=== PATIENT | female | born 1940 | race Caucasian/White ===

== ENCOUNTER 2023-03-15 22:21 | Inpatient (IN) | payer OTHER, MEDICAID ==
[~2023-03-15] VITALS: Ht 157.5 cm; Wt 77.1 kg
[2023-03-15 22:31] VITALS: BP 142/66; PULSE 110; RESP 26; TEMP 98.3; O2SAT 98
[2023-03-15] MEDS ORDERED: NACL 0.9% 1,000 ML IV ONE (22:35)
[2023-03-15] MEDS ORDERED: cefTRIAXone 1,000 MG VIAL ONE (23:08)
[2023-03-15 23:22] LABS: BASOPHILS % (AUTO) 0.3 % (0.0-2.0); EOSINOPHILS % (AUTO) 0.2 % (0.0-4.0); HEMATOCRIT 38.7 % (36-48); HEMOGLOBIN 12.8 g/dL (12.0-16.0); LYMPHOCYTES % (AUTO) 20.1 % (20.5-51.1); MEAN CORPUSCULAR HEMOGLOBIN 31 pg (27-31); MEAN CORPUSCULAR HGB CONC 33 g/dL (33-37); MEAN CORPUSCULAR VOLUME 93.3 fL (80-94); MONOCYTES # (AUTO) 1.3 K/uL (0.8-1.0); MONOCYTES % (AUTO) 8.5 % (1.7-9.3); NEUTROPHILS # (AUTO) 10.6 K/uL (1.8-7.7); NEUTROPHILS % (AUTO) 70.9 % (42.2-75.2); PLATELET COUNT (AUTO) 206 K/uL (140-450); RED BLOOD CELL COUNT(AUTO) 4.15 MIL/uL (4.20-5.40); RED CELL DISTRIBUTION WIDTH 13.8 % (11.6-13.7); WHITE BLOOD COUNT (AUTO) 14.9 K/uL (4.8-10.8)
[2023-03-15 23:38] LABS: LACTIC ACID 0.8 mmol/L (0.4-2.0)
[2023-03-15 23:47] LABS: ALANINE AMINOTRANSFERASE 31 U/L (12-78); ALKALINE PHOSPHATASE 71 U/L (50-136); ANION GAP 11.2 (8-16); ASPARTATE AMINOTRANSFERASE 27 U/L (15-37); CALCIUM 9.6 mg/dL (8.5-10.1); CARBON DIOXIDE 23.6 mmol/L (21-32); CHLORIDE 111 mmol/L (98-107); CREATININE 0.7 mg/dL (0.6-1.3); GLUCOSE 103 mg/dL (74-106); POTASSIUM 4.8 mmol/L (3.5-5.1); SODIUM SERUM 141 mmol/L (136-145); TOTAL BILIRUBIN 0.9 mg/dL (0.0-1.0); TOTAL PROTEIN, SERUM 6.4 g/dL (6.4-8.2); UREA NITROGEN, BLOOD 15 mg/dL (7-18)
[2023-03-15 23:53] LABS: APPEARANCE,URINE CLOUDY (CLEAR); BILIRUBIN,URINE NEGATIVE (NEGATIVE); BLOOD, URINE 1+ (NEGATIVE); COLOR,URINE YELLOW (YELLOW); LEUKOCYTE ESTERASE ,URINE 3+ (NEGATIVE); NITRITE, URINE POSITIVE (NEGATIVE); PROTEIN,URINE 1+ (NEGATIVE); UGLUCOSE NEGATIVE (NEGATIVE)
[2023-03-16] VITALS (7 sets, daily range): BP systolic 138–168; BP diastolic 62–75; PULSE 75–124; RESP 18; TEMP 96.2–97.8; O2SAT 94–100
[2023-03-16] LABS: BACTERIA,URINE 3+ /HPF (None Seen); RBC,URINE NONE SEEN /HPF (0-5); SQUAMOUS EPITHELIAL CELL,UR 0-3 (FEW) /LPF (0-3 (FEW)); WBC,URINE TOO MANY TO COUNT /HPF (0-5)
[2023-03-16] MEDS ORDERED: MORPHINE SULFATE 2 MG/ML SYR IVP PRN (07:55)
[2023-03-16] MEDS ORDERED: POTASSIUM CHLORIDE 10 MEQ TABER PO PRN (07:55)
[2023-03-16] MEDS ORDERED: MAG SULF 2000 MG/WATER PREMIX 50 ML IV PRN (07:55)
[2023-03-16] MEDS ORDERED: NACL 0.9% 1,000 ML IV SCH (07:55)
[2023-03-16] MEDS ORDERED: ACETAMINOPHEN 325 MG TAB PO PRN (07:55)
[2023-03-16] MEDS ORDERED: LORazepam 2 MG/ML VIAL IVP PRN (07:55)
[2023-03-16] MEDS ORDERED: DOCUSATE SODIUM 100 MG GELCAP PO PRN (07:55)
[2023-03-16] MEDS ORDERED: ONDANSETRON 4 MG/2 ML VIAL IVP PRN (07:55)
[2023-03-16] MEDS ORDERED: LEVOFLOXACIN 500 MG/D5W PREMIX 100 ML IV SCH (08:30)
[2023-03-16] MEDS ORDERED: ATOR20TA PO (21:52)
[2023-03-16] MEDS ORDERED: LETR2.5T PO (21:52)
[2023-03-16] MEDS ORDERED: ONDA4ODT2 PO (21:52)
[2023-03-16] MEDS ORDERED: ACET-8203 PO (21:52)
[2023-03-16] MEDS ORDERED: IMO2 PO (21:52)
[2023-03-16] MEDS ORDERED: BISA-28 PO (21:52)
[2023-03-16] MEDS ORDERED: [UNRECOGNIZED DRUG - CODE] PO (21:52)
[2023-03-16] MEDS ORDERED: ZINC220T3 PO (21:52)
[2023-03-16] MEDS ORDERED: FAMO40TA12 PO (21:52)
[2023-03-16] MEDS ORDERED: LACT-85 PO (21:52)
[2023-03-16] MEDS ORDERED: Z PACK (21:52)
[2023-03-16] MEDS ORDERED: ASCO500T95 PO (21:52)
[2023-03-16] MEDS ORDERED: DEC4 PO (21:52)
[2023-03-16] MEDS ORDERED: CHOL500014 PO (21:52)
[2023-03-16] MEDS ORDERED: DIPH25TA39 PO (21:52)
[2023-03-16] MEDS ORDERED: PANT40EC56 PO (21:52)
[2023-03-16] MEDS ORDERED: OLAN2.5T40 PO (21:52)
[2023-03-16] MEDS ORDERED: DOCU-299 PO (21:52)
[2023-03-16] MEDS ORDERED: FOS70 PO (21:52)
[2023-03-16] MEDS ORDERED: DIPH25TA41 PO (21:52)
[2023-03-17] VITALS: BP 149/69; PULSE 73; PULSE 80; RESP 18; TEMP 97.1; O2SAT 97
[2023-03-17 04:00] VITALS: BP 151/64; PULSE 69; PULSE 90; RESP 18; TEMP 96.4; O2SAT 98
[2023-03-17 05:37] LABS: BASOPHILS # (AUTO) 0.2 K/uL (0.00-0.22); BASOPHILS % (AUTO) 2.9 % (0.0-2.0); HEMATOCRIT 35.6 % (36-48); HEMOGLOBIN 11.9 g/dL (12.0-16.0); LYMPHOCYTES # (AUTO) 3.1 K/uL (2.5-16.5); LYMPHOCYTES % (AUTO) 37.4 % (20.5-51.1); MEAN CORPUSCULAR HEMOGLOBIN 31 pg (27-31); MEAN CORPUSCULAR HGB CONC 33 g/dL (33-37); MONOCYTES # (AUTO) 0.6 K/uL (0.8-1.0); MONOCYTES % (AUTO) 7.3 % (1.7-9.3); NEUTROPHILS # (AUTO) 4.3 K/uL (1.8-7.7); NEUTROPHILS % (AUTO) 52.4 % (42.2-75.2); PLATELET COUNT (AUTO) 187 K/uL (140-450); RED BLOOD CELL COUNT(AUTO) 3.79 MIL/uL (4.20-5.40); RED CELL DISTRIBUTION WIDTH 13.5 % (11.6-13.7); WHITE BLOOD COUNT (AUTO) 8.3 K/uL (4.8-10.8)
[2023-03-17 05:51] LABS: ANION GAP 9.7 (8-16); CALCIUM 9.2 mg/dL (8.5-10.1); CARBON DIOXIDE 25.7 mmol/L (21-32); CHLORIDE 111 mmol/L (98-107); CREATININE 0.7 mg/dL (0.6-1.3); GLUCOSE 112 mg/dL (74-106); POTASSIUM 4.4 mmol/L (3.5-5.1); SODIUM SERUM 142 mmol/L (136-145); UREA NITROGEN, BLOOD 9 mg/dL (7-18)
[2023-03-17 08:00] VITALS: BP 127/66; PULSE 74; PULSE 82; RESP 18; TEMP 97.7; O2SAT 96; O2SAT 99
[2023-03-17 09:28] VITALS: O2SAT 98
[2023-03-17] MEDS: LEVOFLOXACIN 250 MG/D5 PREMIX 50 ML IV SCH (10:22)
[2023-03-17] MEDS ORDERED: OLANZapine 2.5 MG TAB PO SCH (11:17)
[2023-03-17 20:00] VITALS: BP 120/50; PULSE 83; RESP 18; TEMP 97.5; O2SAT 95
[2023-03-17] MEDS: ZOLPIDEM 10 MG TAB PO PRN (21:31)
[2023-03-18 04:00] VITALS: BP 118/54; PULSE 81; RESP 18; TEMP 97; O2SAT 97
[2023-03-18 05:40] LABS: BASOPHILS % (AUTO) 0.3 % (0.0-2.0); EOSINOPHILS % (AUTO) 0.1 % (0.0-4.0); HEMATOCRIT 37.1 % (36-48); HEMOGLOBIN 12.4 g/dL (12.0-16.0); LYMPHOCYTES # (AUTO) 2.6 K/uL (2.5-16.5); LYMPHOCYTES % (AUTO) 30.3 % (20.5-51.1); MEAN CORPUSCULAR HEMOGLOBIN 32 pg (27-31); MEAN CORPUSCULAR HGB CONC 34 g/dL (33-37); MEAN CORPUSCULAR VOLUME 94.1 fL (80-94); MONOCYTES # (AUTO) 0.8 K/uL (0.8-1.0); MONOCYTES % (AUTO) 9.2 % (1.7-9.3); NEUTROPHILS # (AUTO) 5.1 K/uL (1.8-7.7); NEUTROPHILS % (AUTO) 60.1 % (42.2-75.2); PLATELET COUNT (AUTO) 190 K/uL (140-450); RED BLOOD CELL COUNT(AUTO) 3.94 MIL/uL (4.20-5.40); RED CELL DISTRIBUTION WIDTH 13.8 % (11.6-13.7); WHITE BLOOD COUNT (AUTO) 8.4 K/uL (4.8-10.8)
[2023-03-18 06:31] LABS: CALCIUM 9.7 mg/dL (8.5-10.1); CARBON DIOXIDE 26.6 mmol/L (21-32); CHLORIDE 108 mmol/L (98-107); CREATININE 0.8 mg/dL (0.6-1.3); GLUCOSE 106 mg/dL (74-106); POTASSIUM 4.6 mmol/L (3.5-5.1); SODIUM SERUM 141 mmol/L (136-145); UREA NITROGEN, BLOOD 16 mg/dL (7-18)
[2023-03-18 08:00] VITALS: BP 128/65; PULSE 85; RESP 18; TEMP 97.6; O2SAT 98
[2023-03-18] MEDS: LEVOFLOXACIN 250 MG/D5 PREMIX 50 ML IV SCH (08:25)
[2023-03-18] MEDS: OLANZapine 2.5 MG TAB PO SCH (08:25)
[2023-03-18 09:37] VITALS: O2SAT 98
[2023-03-18 20:00] VITALS: BP 115/72; PULSE 106; RESP 18; TEMP 98.3; O2SAT 95; O2SAT 98
[2023-03-19] MEDS: ZOLPIDEM 10 MG TAB PO PRN (01:54)
[2023-03-19 04:00] VITALS: BP 120/84; PULSE 90; RESP 18; TEMP 97; O2SAT 97
[2023-03-19 05:44] LABS: BASOPHILS % (AUTO) 0.2 % (0.0-2.0); EOSINOPHILS % (AUTO) 0.1 % (0.0-4.0); HEMATOCRIT 38.2 % (36-48); HEMOGLOBIN 12.9 g/dL (12.0-16.0); LYMPHOCYTES % (AUTO) 33.9 % (20.5-51.1); MEAN CORPUSCULAR HEMOGLOBIN 32 pg (27-31); MEAN CORPUSCULAR HGB CONC 34 g/dL (33-37); MEAN CORPUSCULAR VOLUME 93.8 fL (80-94); MONOCYTES % (AUTO) 11.1 % (1.7-9.3); NEUTROPHILS # (AUTO) 4.9 K/uL (1.8-7.7); NEUTROPHILS % (AUTO) 54.7 % (42.2-75.2); PLATELET COUNT (AUTO) 202 K/uL (140-450); RED BLOOD CELL COUNT(AUTO) 4.07 MIL/uL (4.20-5.40); RED CELL DISTRIBUTION WIDTH 13.6 % (11.6-13.7); WHITE BLOOD COUNT (AUTO) 8.9 K/uL (4.8-10.8)
[2023-03-19 05:52] LABS: ANION GAP 10.6 (8-16); CALCIUM 9.9 mg/dL (8.5-10.1); CARBON DIOXIDE 26.4 mmol/L (21-32); CHLORIDE 106 mmol/L (98-107); CREATININE 0.7 mg/dL (0.6-1.3); GLUCOSE 116 mg/dL (74-106); SODIUM SERUM 139 mmol/L (136-145); UREA NITROGEN, BLOOD 19 mg/dL (7-18)
[2023-03-19 08:00] VITALS: PULSE 97; RESP 18; O2SAT 98
[2023-03-19] MEDS ORDERED: LEVO-481 PO (08:56)
[2023-03-19] MEDS: LEVOFLOXACIN 250 MG/D5 PREMIX 50 ML IV SCH (09:00)
[2023-03-19] MEDS: OLANZapine 2.5 MG TAB PO SCH (10:02)
[2023-03-19 17:27] VITALS: BP 97/48; PULSE 88; RESP 18; TEMP 98.5
== END 2023-03-19 17:50 | disposition home health service (06) | DRG 871 ==
LOC: MED 22:21 → MTU 03-16 03:29
PROVIDERS: ADMIT Family Medicine; ATTEND Family Medicine
DX: A41.9 Sepsis, unspecified organism (principal); G93.41 Metabolic encephalopathy; N39.0 Urinary tract infection, site not specified; E44.1 Mild protein-calorie malnutrition; I10 Essential (primary) hypertension; D64.9 Anemia, unspecified; K44.9 Diaphragmatic hernia without obstruction or gangrene; Z88.1 Allergy status to other antibiotic agents; Z88.2 Allergy status to sulfonamides; Z79.899 Other long term (current) drug therapy; Z85.3 Personal history of malignant neoplasm of breast; Z68.31 Body mass index [BMI] 31.0-31.9, adult
CPT/HCPCS: 36415; 71045; 80048; 80053; 81001; 83605; 83735; 85025; 87040; 87081; 93005; 97112; 97116; 97163-GP; 97530; J0696; J1956; J2060; Q0092